=== PATIENT | female | born 1990 | race Caucasian/White ===

== ENCOUNTER 2018-10-08 05:00 | Inpatient (IN) ==
--- NOTE | 2018-10-07 16:44 | HP ---
Chief Complaint - Chief Complaint Date of Service: 10/07/18 Time of Service: 16:37 Chief Complaint: RLTCS History of Present Illness: 28 yo at 38 1/7 weeks today scheduled for RLTCS on 10/08/18 at 38 2/7 weeks due to chronic HTN and IDDM -type II. This complicated by asthma, CHTN, DM - insulin dependent during , morbid obesity, prior C/S, and oligohydramnios (resolved 10/01/18). Rh positive Rubella immune GBS positive Medical History (Updated 10/07/18 @ 16:44 by Ajit Rosales DO) BMI greater than 40 (Chronic) Diabetes type 2, controlled (Acute) Insulin 24h NPH qHS Insulin resistance (Chronic) Usually takes metformin 500mg TID, but has not been taking for the past 3 months Insulin resistance Onset Date: ~2009 Pt was on Metformin 500mg TID prior to . Oligohydramnios Onset Date: 09/03/18 Polycystic ovarian disease Onset Date: ~1999 Asthma Onset Date: Unknown childhood. No inhaler since elementary school. Spontaneous Onset Date: 10/30/17 No D&C Surgical History: Surgical History (Updated 09/02/18 @ 18:25 by Ajit Rosales DO) Previous section (Chronic) Previous section Onset Date: 09/07/10 History of placement of ear tubes Onset Date: Unknown Hx of tonsillectomy Onset Date: Unknown Family History: Family History (Updated 03/04/18 @ 13:24 by Kathryn Brown RN) Mother Diabetes pre Father Heart disease Social History: Preferred Language Samoan Smoking Status Never smoker Abuse History No History of abuse Psych History No pertinent hx (Last Updated 10/07/18 @ 15:39 by Ajit Rosales DO) No Social History Section defined Review Of Systems (GEN) - Review of Systems Generalized/Overall Review: Present: No Symptoms Reported EENTM: Present: No Symptoms Reported Respiratory: Present: No Symptoms Reported Cardiac: Present: No Symptoms Reported Abdominal: Present: No Symptoms Reported Genitourinary: Present: No Symptoms Reported Musculoskeletal: Present: No Symptoms Reported Neurological: Present: No Symptoms Reported Skin: Present: No Symptoms Reported Endocrine: Present: No Symptoms Reported Immunizations: IMMUNIZATION HX Immunizations Up to Date Yes History of Influenza Vaccine Yes Hx Pneumococcal Vaccination No Allergies/Adverse Reactions: Allergies Allergy/AdvReac Type Severity Reaction Status Date / Time No Known Allergies Allergy Verified 10/01/18 08:48 Home Medications: HOME MEDICATIONS vitamin,calcium,tgbdocxk-ibnu-mpeqf acid tablet 1 tab PO DAILY 03/04/18 [Last Taken Unknown] acetone (urine) test strips See Dose Instructions .ROUTE .MEDSUPPLY #100 ea 03/05/18 [Last Taken Unknown] blood sugar diagnostic strips See Dose Instructions .ROUTE .MEDSUPPLY #100 ea 03/05/18 [Last Taken Unknown] blood-glucose meter kit See Dose Instructions .ROUTE .MEDSUPPLY #1 ea 03/05/18 [Last Taken Unknown] lancets 23 gauge See Dose Instructions .ROUTE .MEDSUPPLY #100 ea 03/05/18 [Last Taken Unknown] insulin syringe U-100 with needle 1 mL 30 gauge x 09/19" See Dose Instructions .ROUTE .MEDSUPPLY #100 ea 03/18/18 [Last Taken Unknown] insulin NPH isophane U-100 human 100 unit/mL subcutaneous suspension 24 unit SUBCUT QPM #10 ml 05/13/18 [Last Taken Unknown] Exam - Exam Vital Signs: T 36.7 C BP 127/70 P 84 R 16 O2% 98 Ht. 1.73 m Wt. 132.619 kg Constitutional: Present: Alert, Oriented x3, Cooperative, No distress ENT Exam: Present: hearing grossly normal Breasts: Present: Exam deferred Respiratory: Present: lungs clear, no respiratory distress Cardiovascular/Chest: Present: regular rate, rhythm, edema - 1+ Abdomen: Present: soft, nontender, no rebound tenderness, other - gravid, obese /Rectal: Present: Exam deferred Extremity: Present: no calf tenderness, lower extremity edema Skin Exam: Present: normal color, warm/dry, no cyanosis Neurologic: Present: alert, normal mood/affect, oriented x 3 Appearance: Present: appropriate appearance, appropriate insight Eye contact: Present: cooperative, good eye contact, normal speech Thoughts: Present: normal thought pattern Assessment/Plan - Narrative Narrative: Admit for RLTCS. R/b/a discussed with patient. All questions answered. - Assessment/Plan (1) Previous section Problem: Chronic (2) Chronic hypertension during Problem: Chronic (3) Diabetes type 2, controlled Problem: Acute Qualifiers: Diabetes mellitus group home insulin use: without group home use Diabetes mellitus complication status: without complication Qualified Code(s): E11.9 - Type 2 diabetes mellitus without complications (4) BMI greater than 40 Problem: Chronic
[2018-10-08] MEDS ORDERED: RINGER'S SOLUTION,LACTATED 1,000 ML IV PRN (05:27)
[2018-10-08] MEDS ORDERED: ceFAZolin SODIUM/DEXTROSE,ISO 2 GM/50 ML BAG IV ONE (05:27)
[2018-10-08] MEDS ORDERED: OXYTOCIN 20 UNITS in RINGER'S SOLUTION,LACTATED 1,000 ML IV ONE (05:27)
[2018-10-08] MEDS: RINGER'S SOLUTION,LACTATED 1,000 ML IV PRN ×2 (05:34→10:30)
[2018-10-08 06:20] LABS: Cocaine Ur Negative (NEGATIVE); Urine Barbiturate Negative (NEGATIVE); Urine Benzodiazepines Negative (NEGATIVE); Urine Opiates Negative (NEGATIVE); Urine PCP Negative (NEGATIVE); Urine THC Negative (NEGATIVE)
--- NOTE | 2018-10-08 07:23 | ANES ---
Anesthesia Pre Procedure Eval HOME MEDICATIONS vitamin,calcium,exksoasw-jole-odhid acid tablet 1 tab PO DAILY 03/04/18 [Last Taken Unknown] acetone (urine) test strips See Dose Instructions .ROUTE .MEDSUPPLY #100 ea 03/05/18 [Last Taken Unknown] blood sugar diagnostic strips See Dose Instructions .ROUTE .MEDSUPPLY #100 ea 03/05/18 [Last Taken Unknown] blood-glucose meter kit See Dose Instructions .ROUTE .MEDSUPPLY #1 ea 03/05/18 [Last Taken Unknown] lancets 23 gauge See Dose Instructions .ROUTE .MEDSUPPLY #100 ea 03/05/18 [Last Taken Unknown] insulin syringe U-100 with needle 1 mL 30 gauge x 5/16" See Dose Instructions .ROUTE .MEDSUPPLY #100 ea 03/18/18 [Last Taken Unknown] insulin NPH isophane U-100 human 100 unit/mL subcutaneous suspension 24 unit SUBCUT QPM #10 ml 05/13/18 [Last Taken Unknown] Allergies/Adverse Reactions: Allergies Allergy/AdvReac Type Severity Reaction Status Date / Time No Known Allergies Allergy Verified 10/01/18 08:48 - Planned Procedure Planned Procedure: Repeat Section with poss abdominal scar r Medication List Reviewed:: Yes Allergies Verified: Yes Medical History (Updated 10/07/18 @ 16:44 by Ajit Rosales DO) BMI greater than 40 (Chronic) Diabetes type 2, controlled (Acute) Insulin 24h NPH qHS Insulin resistance (Chronic) Usually takes metformin 500mg TID, but has not been taking for the past 3 months Insulin resistance Onset Date: ~2009 Pt was on Metformin 500mg TID prior to . Oligohydramnios Onset Date: 09/03/18 Polycystic ovarian disease Onset Date: ~1999 Asthma Onset Date: Unknown childhood. No inhaler since elementary school. Spontaneous Onset Date: 10/30/17 No D&C Surgical History (Updated 09/02/18 @ 18:25 by Ajit Rosales DO) Previous section (Chronic) Previous section Onset Date: 09/07/10 History of placement of ear tubes Onset Date: Unknown Hx of tonsillectomy Onset Date: Unknown Family History (Updated 03/04/18 @ 13:24 by Kathryn Brown RN) Mother Diabetes pre Father Heart disease - Family Anesthesia History Family History:: no untoward family reactions to anesthesia, no familial bleeding tendencies, no family history of clotting disorders, no family history of premature - Airway/Neck/Teeth Within Normal Limits:: Yes Teeth Condition: intact Mallampatti Score: 3 Thyromental (T-M) distance: > 6 cm Mandibulo Hyoid distance: > 3 cm - Respiratory Respiratory Physical: lungs clear Smoking Status: Never smoker Discussed smoking cessation including day of surgery: No Sleep Apnea currently treated: No Sleep Apnea by current assessment: No Discussed Risks/Treatment of MINE: No - Cardiovascular Tolerate Activity: Good Heart Sounds: S1 & S2, Regular - Anesthesia Assessment and Plan ASA Class: PS, II Anesthesia Type Plan: Spinal
[2018-10-08] MEDS ORDERED: oxyCODONE HCL/ACETAMINOPHEN 1 TAB TABLET PO PRN (09:36)
[2018-10-08] MEDS ORDERED: SENNOSIDES 8.6 MG TABLET PO PRN (09:36)
[2018-10-08] MEDS ORDERED: SIMETHICONE 80 MG TAB.CHEW PO PRN (09:36)
[2018-10-08] MEDS ORDERED: IBUPROFEN 800 MG TABLET PO PRN (09:36)
[2018-10-08] MEDS ORDERED: ONDANSETRON HCL/PF 2 MG/ML VIAL IV PRN (09:36)
[2018-10-08] MEDS ORDERED: BISACODYL 10 MG SUPP.RECT RC PRN (09:36)
[2018-10-08] MEDS ORDERED: HYDROmorphone HCL 2 MG/ML VIAL IV ONE (09:42)
--- NOTE | 2018-10-08 09:42 | OR ---
Operative Report - Dictated Report Narrative: Indication: 28-year-old 3 para 1 at 38-2/7 weeks with prior section presents for repeat section due to chronic hypertension, type 2 diabetes on insulin, and oligohydramnios. status: Planned Pre Operative Diagnosis: 38-2/7 week intrauterine . Prior section. Diabetes-type II on insulin. Chronic hypertension. Oligohydramnios. Post Operative Diagnosis: Same. Procedure: Repeat low transverse section. Surgeon: Carl Rosales DO Boiler Tube Blower: OR Staff Anesthesia: Spinal, Estimated Blood Loss: 400 mL Urine Output: 200 mL clear urine Fluids Replacement: 1700 mL of crystalloid Drains: Johnson to gravity Surgical Complications: None Specimens: Placenta to pathology Findings: Female born at 0821 on 10/08/2017 with Apgars 9 and 9, weighing 4083 g in cephalic presentation. Normal uterus, tubes, ovaries Technique: The patient was taken to the operating room and placed in dorsal supine position with a left lateral tilt. After adequate spinal anesthesia, johnson catheter inserted, SCDs placed, and 2 g of Ancef given preoperatively, the abdominal cavity was entered using sharp and blunt dissection. Two rolled laps were placed in the pericolic gutters on either side of the uterus. A transverse incision was made in the lower uterine segment and extended laterally and upwardly with digital traction. Clear fluid was noted upon amniotomy. The infant was delivered easily. The cord was clamped and cut and infant was handed off to awaiting skidder loader. The placenta was allowed to deliver spontaneously. The uterus was cleared of clot and debris. Uterine incision was closed with 0 Vicryl using a running stitch. A second imbricating layer was placed. A small rzlxbf-om-[id number] suture was placed in midline because of oozing. Excellent hemostasis was noted. The rolled laps were removed from the abdominal cavitiy. The peritoneum was closed with a running 3-0 Monocryl. The same suture was used to approximate the rectus and pyramidalis muscles. The fascia was closed with a running 0 Vicryl. Persistent bleeding from a small tear in the pyramidalis muscle required cauterization and a sjgdyj-mh-aagdj of sutures using 3-0 Monocryl to obtain hemostasis. The subcutaneous layer was closed with a running 3-0 Monocryl. The same suture was used to approximate the subdermal layer. The skin was closed with a running 4-0 Monocryl and Dermabond. Sponge, lap, needle, and instrument count were correct x 2. Disposition: To post anesthesia care unit in good condition History for MU History for MU Definition: * The number of deliveries resulting in a live the patient experienced prior to current hospitalization * The previous delivery of live twins or any live multiple gestation is consi dered one live event. *If primagravida or nulliparous is documented select zero for the number of previous live births. Live Events: Live Events: 1
[2018-10-08] MEDS ORDERED: KETOROLAC TROMETHAMINE 15 MG/ML VIAL IV ONE (09:43)
--- NOTE | 2018-10-08 11:09 | ANES ---
Post Anesthesia Assessment - Vital Signs Vitals: Last Vital Signs Temp 36.3 C 10/08/18 10:06 Pulse 63 10/08/18 10:50 Resp 16 10/08/18 10:50 BP 145/66 H 10/08/18 10:50 Pulse Ox 97 10/08/18 10:50 Airway Patency: Normal - Mental Status Level Of Consciousness: Awake - Pain Level Pain Score: 1 - N/V Assessment Nausea/Vomiting Presence: None Dehydration:: No
[2018-10-08] MEDS: IBUPROFEN 800 MG TABLET PO PRN ×2 (15:18→21:06)
[2018-10-08] MEDS: ENOXAPARIN SODIUM 40 MG/0.4 ML SYRG SC SCH (17:57)
[2018-10-08] MEDS: DOCUSATE SODIUM 100 MG CAPSULE PO SCH (21:01)
[2018-10-09] MEDS: IBUPROFEN 800 MG TABLET PO PRN ×3 (03:14→18:49)
[2018-10-09] MEDS: DOCUSATE SODIUM 100 MG CAPSULE PO SCH ×2 (14:53→22:27)
[2018-10-09] MEDS: PRENATAL VITS96/IRON FUM/FOLIC 1 TAB TABLET PO SCH (14:58)
[2018-10-09] MEDS: ENOXAPARIN SODIUM 40 MG/0.4 ML SYRG SC SCH (16:49)
--- NOTE | 2018-10-09 17:33 | PN ---
Subjective - Date and Time Seen Date: 10/09/18 Time: 17:31 Objective - Vitals Vitals: Last Vital Signs Temp 36.8 C 10/09/18 14:51 Pulse 68 10/09/18 14:51 Resp 18 10/09/18 14:51 BP 121/60 10/09/18 14:51 Pulse Ox 97 10/09/18 14:51 [Patient denies complaints. Tolerating regular diet. Ambulating without difficulty. Pain well controlled.] Lochia wnl. Abdomen - soft, appropriately tender Incision - [clean, dry, intact] Uterus - firm, at umbilicus -[1] No calf tenderness Impression: Post op day #1 s/p repeat section. Chronic hypertension- stable. Diabetes, type 2. Morbid obesity Plan: Continue routine post-operative/ care. Continue to monitor blood sugars and blood pressures for now. Cauti Physician Documentation - Urinary Catheter Management Urethral ([place]) Date of Insertion: 10/08/18 Time of Insertion: 08:00 Assessment/Plan - Problems/Diagnosis (1) Previous section Problem: Chronic (2) Chronic hypertension during Problem: Chronic (3) Diabetes type 2, controlled Problem: Acute Qualifiers: Diabetes mellitus long term care social worker insulin use: without long term care social worker use Diabetes mellitus complication status: without complication Qualified Code(s): E11.9 - Type 2 diabetes mellitus without complications (4) BMI greater than 40 Problem: Chronic
[2018-10-10] MEDS: DOCUSATE SODIUM 100 MG CAPSULE PO SCH ×2 (08:21→21:06)
[2018-10-10] MEDS: PRENATAL VITS96/IRON FUM/FOLIC 1 TAB TABLET PO SCH (08:21)
--- NOTE | 2018-10-10 11:30 | PN ---
Subjective - Date and Time Seen Date: 10/10/18 Time: 11:29 Objective - Vitals Vitals: Last Vital Signs Temp 36.9 C 10/09/18 19:06 Pulse 65 10/10/18 01:17 Resp 18 10/10/18 01:17 BP 133/82 10/10/18 01:17 Pulse Ox 98 10/10/18 01:17 Patient denies complaints. Ambulating well. Tolerating regular diet. Pain well controlled. Bottle feeding Lochia wnl. Abdomen - soft, appropriately tender Incision - clean, dry, intact Uterus - firm, at umbilicus -2 No calf tenderness Impression: Post op day #2 s/p repeat section. Diabetes-type II mildly elevated. Chronic hypertension-stable. Plan: Continue routine post-operative/ care. Started on long-acting metformin to better control blood sugars. 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
[2018-10-10] MEDS: metFORMIN HCL 750 MG TAB.SR.24H PO SCH (16:25)
[2018-10-10] MEDS: ENOXAPARIN SODIUM 40 MG/0.4 ML SYRG SC SCH (16:25)
[2018-10-10] MEDS: IBUPROFEN 800 MG TABLET PO PRN (23:00)
[2018-10-11 07:55] VITALS: BP 135/85
[2018-10-11] MEDS: PRENATAL VITS96/IRON FUM/FOLIC 1 TAB TABLET PO SCH (08:05)
[2018-10-11] MEDS: DOCUSATE SODIUM 100 MG CAPSULE PO SCH (08:06)
[2018-10-11] MEDS: metFORMIN HCL 750 MG TAB.SR.24H PO SCH (08:06)
--- NOTE | 2018-10-11 11:49 | PN ---
Subjective - Date and Time Seen Date: 10/11/18 Time: 11:47 Objective - Vitals Vitals: Last Vital Signs Temp 36.3 C 10/11/18 07:00 Pulse 68 10/11/18 07:00 Resp 14 10/11/18 07:00 BP 135/85 10/11/18 07:00 Pulse Ox 100 10/11/18 07:00 Patient denies complaints. Ambulating without difficulty. Tolerating regular diet. Pain well controlled. Bottle feeding Lochia wnl. Abdomen - soft, appropriately tender Incision - clean, dry, intact Uterus - firm, at umbilicus -3 No calf tenderness Impression: Post op day #3 s/p repeat section. Chronic hypertension- stable. Type 2 diabetes-mildly uncontrolled. Plan: Routine discharge instructions. Metformin dose increased. Recheck blood sugars in 1-2 weeks at postop appointment. Cauti Physician Documentation - Urinary Catheter Management Urethral ([place]) Date of Insertion: 10/08/18 Time of Insertion: 08:00 Assessment/Plan - Problems/Diagnosis (1) Previous section Problem: Chronic (2) Chronic hypertension during Problem: Chronic (3) Diabetes type 2, controlled Problem: Acute Qualifiers: Diabetes mellitus prison insulin use: without terminal computer operator use Diabetes mellitus complication status: without complication Qualified Code(s): E11.9 - Type 2 diabetes mellitus without complications (4) BMI greater than 40 Problem: Chronic
== END 2018-10-11 12:00 | disposition home or self-care (01) | DRG 786 ==
LOC: OB 05:00 → MS 10-09 09:32
PROVIDERS: ADMIT Obstetrics & Gynecology; ATTEND Obstetrics & Gynecology
CPT/HCPCS: 59025; 80307; 88307